=== PATIENT | male | born 1950 | race African-American/Black ===

== ENCOUNTER 2023-11-25 10:10 | Emergency (ER) | payer MEDICARE ==
[2023-11-25] MEDS ORDERED: HYDROcodone/Acetaminophen 5/325 mg Tablet ONE (10:57)
[2023-11-25 11:25] LABS: #Monocytes 0.7 thou/uL (0.11-0.59); #Neutrophils 7.5 thou/uL (1.40-6.50); %Basophils 0.1 % (0.0-1.0); %Lymphocytes 11.2 % (21.0-51.0); %Monocytes 7.9 % (0.0-10.0); %Neutrophils 80.4 % (42.0-75.0); Hematocrit 45.5 % (42.0-52.0); Hemoglobin 15.4 g/dL (14.0-18.0); Mean Corpuscular HGB CONC 33.8 g/dL (32.0-36.0); Mean Corpuscular Volume 88.5 fl (78.0-98.0); Mean Platelet Volume 10.2 fL (7.4-10.4); Platelet Count 210 10x3/uL (130-400); RBC Distribution Width 13.1 % (11.5-14.5); Red Blood Cell (RBC) Count 5.14 mill/uL (4.70-6.10); White Blood Cell (WBC) Count 9.3 10x3/uL (4.8-10.8)
[2023-11-25 11:48] LABS: ALT (SGPT) 25 U/L (8-55); AST (SGOT) 35 U/L (5-34); Albumin 4.2 g/dL (3.4-4.8); Alkaline Phosphatase 122 U/L (40-110); Anion Gap 20 mmol/L (10-20); BUN (Urea Nitrogen) 53 mg/dL (8.4-25.7); Bilirubin, Total 0.8 mg/dL (0.2-1.2); Calc. Creatinine Clearance 0 mL/min (70-130); Calcium 9.9 mg/dL (7.8-10.44); Carbon Dioxide 24 mmol/L (23-31); Chloride 99 mmol/L (98-107); Estimated GFR 16; Globulin 5.1 g/dL (2.4-3.5); Glucose 122 mg/dL (83-110); Potassium 4.1 mmol/L (3.5-5.1); Protein, Total 9.3 g/dL (5.8-8.1); Sodium 139 mmol/L (136-145)
[2023-11-25 12:34] LABS: Bacteria/HPF 4+ HPF (None Seen); Bilirubin Negative (Negative); Blood, Urine 2+ (Negative); CAUTI Indications for Culture Pelvic or flank pain; Clarity Turbid (Clear); Glucose, Urine (Dipstick) 100 mg/dL (Negative); Ketone, Urine Negative (Negative); Leukocyte 75 Leu/uL (Negative); Nitrite Negative (Negative); Protein, Urine (Dipstick) 30 mg/dL (Neg-Trace); RBC/HPF Greater than 50 HPF (0-3); Squamous Epithelial None Seen HPF (0-3); Urobilinogen Normal mg/dL (Less than 2)
[2023-11-25 12:37] LABS: Urine Culture Reflex Yes Yes
== END 2023-11-25 13:33 | disposition home or self-care (01) ==
LOC: ERS 10:10
DX: N40.1 Benign prostatic hyperplasia with lower urinary tract symptoms (principal); R33.8 Other retention of urine
CPT/HCPCS: 51702; 74176; 80053; 81001; 85025; 87086

== ENCOUNTER 2023-12-12 09:55 | Emergency (ER) | payer MEDICARE ==
[2023-12-12 11:24] LABS: Bilirubin Negative (Negative); Blood, Urine 3+ (Negative); CAUTI Indications for Culture Dysuria,urgency,freq; Clarity Turbid (Clear); Glucose, Urine (Dipstick) Normal (Negative); Ketone, Urine Negative (Negative); Leukocyte 250 Leu/uL (Negative); Nitrite Negative (Negative); Protein, Urine (Dipstick) 20 mg/dL (Neg-Trace); RBC/HPF Greater than 50 HPF (0-3); Specific Gravity, Urine 1.009 (1.002-1.036); Squamous Epithelial 0-3 HPF (0-3); Urobilinogen Normal mg/dL (Less than 2); pH, Urine 7.5 (5.0-9.0)
[2023-12-12 11:32] LABS: Bacteria/HPF Rare-Few HPF (None Seen)
[2023-12-12 11:33] LABS: Transitional Epithelial 0-3 HPF (None Seen); Urine Culture Reflex No No
== END 2023-12-12 12:06 | disposition home or self-care (01) ==
LOC: ERS 09:55
DX: R33.9 Retention of urine, unspecified (principal); F17.210 Nicotine dependence, cigarettes, uncomplicated
CPT/HCPCS: 51702; 51798; 81001; 87086; 99283

== ENCOUNTER 2024-06-03 09:17 | Inpatient (IN) | payer MEDICARE ==
[2024-06-03 10:47] LABS: Reflex for Review?? YES
[2024-06-03 10:53] LABS: ALT (SGPT) 14 U/L (8-55); AST (SGOT) 18 U/L (5-34); Albumin 2.5 g/dL (3.4-4.8); Alkaline Phosphatase 125 U/L (40-110); Anion Gap 20 mmol/L (10-20); BUN (Urea Nitrogen) 16 mg/dL (8.4-25.7); Bilirubin, Total 0.2 mg/dL (0.2-1.2); Calc. Creatinine Clearance 0 mL/min (70-130); Calcium 9.5 mg/dL (7.8-10.44); Carbon Dioxide 22 mmol/L (23-31); Chloride 99 mmol/L (98-107); Estimated GFR 69; Globulin 9.5 g/dL (2.4-3.5); Glucose 101 mg/dL (83-110); Hematocrit 16.5 % (42.0-52.0); Hemoglobin 5.1 g/dL (14.0-18.0); Mean Corpuscular HGB CONC 30.9 g/dL (32.0-36.0); Mean Corpuscular Hemoglobin 27.3 pg (27.0-31.0); Mean Corpuscular Volume 88.2 fL (78.0-98.0); Platelet Count 18 10x3/uL (130-400); Potassium 4.9 mmol/L (3.5-5.1); RBC Distribution Width 17.9 % (11.5-14.5); Red Blood Cell (RBC) Count 1.87 mill/uL (4.70-6.10); Sodium 136 mmol/L (136-145)
[2024-06-03 10:58] LABS: Troponin I Less than 0.010 ng/mL (< 0.028)
[2024-06-03] MEDS ORDERED: Senokot S 8.6-50 MG TAB PO PRN (11:42)
[2024-06-03] MEDS ORDERED: Acetaminophen 325 MG TAB PO PRN (11:42)
[2024-06-03] MEDS ORDERED: Ondansetron PF 4 MG/2 ML Vial IVP PRN (11:42)
[2024-06-03] MEDS ORDERED: Sodium Chloride 0.9% 1,000 ML IV SCH (11:45)
[2024-06-03 13:19] LABS: Bacteria/HPF None Seen HPF (None Seen); Bilirubin Negative (Negative); Blood, Urine Negative (Negative); CAUTI Indications for Culture Immunosuppressed; Clarity Clear (Clear); Glucose, Urine (Dipstick) Normal (Negative); Ketone, Urine Negative (Negative); Leukocyte 250 Leu/uL (Negative); Nitrite Negative (Negative); Protein, Urine (Dipstick) 10 mg/dL (Neg-Trace); Specific Gravity, Urine 1.041 (1.002-1.036); Squamous Epithelial 0-3 HPF (0-3); Urobilinogen Normal mg/dL (Less than 2); WBC/HPF Greater than 50 HPF (0-3)
[2024-06-03 13:20] LABS: Urine Culture Reflex Yes Yes
[2024-06-03 13:32] VITALS: BMI 21.7
[2024-06-03 13:37] LABS: Hematocrit 15.2 % (42.0-52.0); Hemoglobin 4.7 g/dL (14.0-18.0); Platelet Count 17 10x3/uL (130-400)
[2024-06-03 16:25] LABS: Hematocrit 16.5 % (42.0-52.0)
[2024-06-03 18:52] LABS: Hematocrit 18.1 % (42.0-52.0)
[2024-06-04 00:37] LABS: Hematocrit 20.4 % (42.0-52.0); Hemoglobin 6.6 g/dL (14.0-18.0); Platelet Count 16 10x3/uL (130-400)
[2024-06-04 07:13] LABS: Hematocrit 23.8 % (42.0-52.0); Hemoglobin 7.8 g/dL (14.0-18.0); Mean Corpuscular HGB CONC 32.8 g/dL (32.0-36.0); Mean Corpuscular Hemoglobin 27.8 pg (27.0-31.0); Mean Corpuscular Volume 84.7 fL (78.0-98.0); Platelet Count 17 10x3/uL (130-400); RBC Distribution Width 17.2 % (11.5-14.5); Red Blood Cell (RBC) Count 2.81 mill/uL (4.70-6.10)
[2024-06-04 07:26] LABS: INR-International Normal Ratio 1.2; Prothrombin Time 15.3 sec (12.0-14.7)
[2024-06-04 07:27] LABS: PTT 36.5 sec (22.9-36.1)
[2024-06-04 07:41] LABS: Anisocytosis MARKED = >30 cells HPF (0-5); Band 1 % (5-11); Hypochromia SLIGHT = 6-15 cells HPF (0-5); Lymphocytes 50 % (21-51); Macrocytosis MODERATE=16-30 cells HPF (0-5); Monocytes 18 % (0-10); Neutrophil 32 % (42-75); Platelet Adequacy Comment Significant Decrease; Polychromasia MARKED = >4 cells HPF (0-2); Target Cells SLIGHT = 2-5 cells HPF (0-1)
[2024-06-04 07:46] LABS: ALT (SGPT) 11 U/L (8-55); AST (SGOT) 17 U/L (5-34); Albumin 2.2 g/dL (3.4-4.8); Alkaline Phosphatase 116 U/L (40-110); Anion Gap 16 mmol/L (10-20); BUN (Urea Nitrogen) 14 mg/dL (8.4-25.7); Bilirubin, Direct 0.3 mg/dL (0.1-0.3); Bilirubin, Total 0.4 mg/dL (0.2-1.2); Calc. Creatinine Clearance 58 mL/min (70-130); Carbon Dioxide 25 mmol/L (23-31); Chloride 100 mmol/L (98-107); Estimated GFR 82; Globulin 8.9 g/dL (2.4-3.5); Glucose 89 mg/dL (83-110); Potassium 4.3 mmol/L (3.5-5.1); Protein, Total 11.1 g/dL (5.8-8.1); Sodium 137 mmol/L (136-145)
[2024-06-04] MEDS: Pantoprazole 40 MG VIAL IVP SCH (08:41)
[2024-06-04 09:05] LABS: Hematocrit 26.5 % (42.0-52.0)
[2024-06-04] MEDS ORDERED: PROPOFOL 200 MG/20 ML VIAL ONE (12:21)
[2024-06-04] MEDS ORDERED: Lidocaine 1% PF 5 ML VIAL ONE (12:21)
[2024-06-04] MEDS ORDERED: Promethazine HCl 25 MG/ML VIAL IM PRN (12:29)
[2024-06-04] MEDS ORDERED: Ondansetron HCl/PF 4 MG/2 ML Vial IVP PRN (12:29)
[2024-06-05 06:27] LABS: Anion Gap 16 mmol/L (10-20); BUN (Urea Nitrogen) 14 mg/dL (8.4-25.7); Calc. Creatinine Clearance 60 mL/min (70-130); Calcium 9.1 mg/dL (7.8-10.44); Carbon Dioxide 23 mmol/L (23-31); Chloride 102 mmol/L (98-107); Estimated GFR 85; Glucose 87 mg/dL (83-110); Iron 82 ug/dL (65-175); Potassium 4.2 mmol/L (3.5-5.1); Sodium 137 mmol/L (136-145); Transferrin, Serum 135 mg/dL (163-344)
[2024-06-05 06:47] LABS: Hematocrit 23.1 % (42.0-52.0); Hemoglobin 7.7 g/dL (14.0-18.0); Mean Corpuscular HGB CONC 33.3 g/dL (32.0-36.0); Mean Corpuscular Hemoglobin 27.6 pg (27.0-31.0); Mean Corpuscular Volume 82.8 fL (78.0-98.0); Mean Platelet Volume 10.6 fL (7.4-10.4); Platelet Count 40 10x3/uL (130-400); RBC Distribution Width 17.5 % (11.5-14.5); Red Blood Cell (RBC) Count 2.79 mill/uL (4.70-6.10)
[2024-06-05 07:40] LABS: Anisocytosis MODERATE=16-30 cells HPF (0-5); Band 2 % (5-11); Hypochromia SLIGHT = 6-15 cells HPF (0-5); Lymphocytes 53 % (21-51); Macrocytosis SLIGHT = 6-15 cells HPF (0-5); Monocytes 12 % (0-10); Neutrophil 33 % (42-75); Ovalocytes SLIGHT = 2-5 cells HPF (0-1); Platelet Adequacy Comment Platelets Decreased; Polychromasia MARKED = >4 cells HPF (0-2)
[2024-06-05] MEDS: Tamsulosin HCl 0.4 MG CAP PO SCH (09:08)
[2024-06-05] MEDS: LevoFLOXacin 750 mg/D5W 750 MG in Premix 1 BAG IVPB SCH (09:19)
[2024-06-05 14:02] LABS: Immunoglob - A (Total IgA) 89 mg/dL (101-645); Immunoglob - G (Total IgG) 714 mg/dL (540-1822)
[2024-06-05 14:46] LABS: Immunoglob - M (Total IgM) Greater than 6360 mg/dL (22-240)
[2024-06-06 08:11] LABS: Hematocrit 23.4 % (42.0-52.0); Hemoglobin 7.7 g/dL (14.0-18.0); Mean Corpuscular HGB CONC 32.9 g/dL (32.0-36.0); Mean Corpuscular Hemoglobin 27.8 pg (27.0-31.0); Mean Corpuscular Volume 84.5 fL (78.0-98.0); Mean Platelet Volume 11.3 fL (7.4-10.4); Platelet Count 35 10x3/uL (130-400); RBC Distribution Width 17.8 % (11.5-14.5); Red Blood Cell (RBC) Count 2.77 mill/uL (4.70-6.10)
[2024-06-06 08:31] LABS: ALT (SGPT) 12 U/L (8-55); AST (SGOT) 20 U/L (5-34); Albumin 2.1 g/dL (3.4-4.8); Alkaline Phosphatase 115 U/L (40-110); Anion Gap 17 mmol/L (10-20); BUN (Urea Nitrogen) 14 mg/dL (8.4-25.7); Bilirubin, Total 0.4 mg/dL (0.2-1.2); Calc. Creatinine Clearance 45 mL/min (70-130); Calcium 9.5 mg/dL (7.8-10.44); Carbon Dioxide 26 mmol/L (23-31); Chloride 97 mmol/L (98-107); Estimated GFR 60; Globulin 9.3 g/dL (2.4-3.5); Glucose 86 mg/dL (83-110); Potassium 4.5 mmol/L (3.5-5.1); Protein, Total 11.4 g/dL (5.8-8.1); Sodium 135 mmol/L (136-145)
[2024-06-06 08:38] LABS: Band 2 % (5-11); Lymphocytes 52 % (21-51); Monocytes 15 % (0-10); Neutrophil 28 % (42-75); Platelet Adequacy Comment Significant Decrease; RBC Morphology Within Normal Limits; Reactive Lymphocytes 3 % (0-10)
[2024-06-06 08:59] LABS: Ferritin 718.29 ng/mL (22-322)
[2024-06-06 16:13] LABS: Albumin-Ur 28.8 % (.); Alpha 1 - Ur 4.1 % (.); Alpha 2 - Ur 13.8 % (.); Beta-Ur 18.7 % (.); Gamma-Ur 34.7 % (.); M-Spike,% 23.1 % (Not Observed)
[2024-06-07 08:58] LABS: Hematocrit 24.6 % (42.0-52.0); Hemoglobin 7.9 g/dL (14.0-18.0); Mean Corpuscular HGB CONC 32.1 g/dL (32.0-36.0); Mean Corpuscular Hemoglobin 27.9 pg (27.0-31.0); Mean Corpuscular Volume 86.9 fL (78.0-98.0); Mean Platelet Volume 9.5 fL (7.4-10.4); Platelet Count 29 10x3/uL (130-400); Red Blood Cell (RBC) Count 2.83 mill/uL (4.70-6.10)
[2024-06-07 09:17] LABS: Kappa Lambda Light Chain Ratio 0.5 (0.26-1.65); Kappa Light Chains 18.7 mg/L (3.3-19.4); Lambda Light Chain 37.5 mg/L (5.7-26.3)
[2024-06-07 09:29] LABS: Band 2 % (5-11); Eosinophils 1 % (0-10); Lymphocytes 46 % (21-51); Monocytes 19 % (0-10); Neutrophil 27 % (42-75); Nucleated RBC (Manual Ct) 1 % (0); Platelet Adequacy Comment Significant Decrease; RBC Morphology Within Normal Limits; Reactive Lymphocytes 6 % (0-10)
[2024-06-07] MEDS ORDERED: Lidocaine 1% PF 5 ML VIAL ONE (13:52)
[2024-06-07 16:04] LABS: Reference Lab Name NEO
[2024-06-08 07:38] LABS: Hematocrit 23.3 % (42.0-52.0); Hemoglobin 7.4 g/dL (14.0-18.0); Mean Corpuscular HGB CONC 31.8 g/dL (32.0-36.0); Mean Corpuscular Hemoglobin 27.4 pg (27.0-31.0); Mean Corpuscular Volume 86.3 fL (78.0-98.0); Mean Platelet Volume 9.8 fL (7.4-10.4); Platelet Count 25 10x3/uL (130-400)
[2024-06-08 08:29] LABS: Band 2 % (5-11); Eosinophils 1 % (0-10); Hypochromia SLIGHT = 6-15 cells HPF (0-5); Lymphocytes 51 % (21-51); Monocytes 17 % (0-10); Neutrophil 29 % (42-75); Platelet Adequacy Comment Significant Decrease; Reactive Lymphocytes 1 % (0-10)
[2024-06-08] MEDS: LevoFLOXacin 750 mg/D5W 750 MG in Premix 1 BAG IVPB SCH (10:23)
[2024-06-08] MEDS: LevoFLOXacin 750 mg/D5W 150 ml Premix Bag ONE (10:35)
[2024-06-08] MEDS: Pantoprazole DR 40 MG TAB PO SCH (10:45)
[2024-06-09 05:49] LABS: Hematocrit 25.6 % (42.0-52.0); Hemoglobin 8.2 g/dL (14.0-18.0); Mean Corpuscular Hemoglobin 27.5 pg (27.0-31.0); Mean Corpuscular Volume 85.9 fL (78.0-98.0); Platelet Count 20 10x3/uL (130-400); RBC Distribution Width 17.9 % (11.5-14.5); Red Blood Cell (RBC) Count 2.98 mill/uL (4.70-6.10)
[2024-06-09 07:41] LABS: Band 6 % (5-11); Lymphocytes 39 % (21-51); Monocytes 29 % (0-10); Neutrophil 18 % (42-75); Platelet Adequacy Comment Significant Decrease; RBC Morphology Within Normal Limits; Reactive Lymphocytes 8 % (0-10)
[2024-06-09] MEDS: Pantoprazole DR 40 MG TAB PO SCH (08:52)
[2024-06-09 11:36] VITALS: BMI 21.7
[2024-06-09 20:47] VITALS: BP 125/69; TEMP 97.5
== END 2024-06-09 16:15 | disposition home or self-care (01) | DRG 841 ==
LOC: ERS 09:17 → T4-B 12:56 → OBSVTOIN 12:56
PROVIDERS: ADMIT Student in an Organized Health Care Education/Training Program; ATTEND Hospitalist
PROC: 0DB68ZX Excision of Stomach, Via Natural or Artificial Opening Endoscopic, Diagnostic (ICD-10-PCS; principal; 2024-06-04)
PROC: 07DR3ZX Extraction of Iliac Bone Marrow, Percutaneous Approach, Diagnostic (ICD-10-PCS; 2024-06-07)
DX: C90.00 Multiple myeloma not having achieved remission (principal); D61.818 Other pancytopenia; K22.10 Ulcer of esophagus without bleeding; C88.0 Waldenstrom macroglobulinemia; D64.9 Anemia, unspecified; D69.6 Thrombocytopenia, unspecified; Z79.899 Other long term (current) drug therapy; H40.9 Unspecified glaucoma; N40.0 Benign prostatic hyperplasia without lower urinary tract symptoms; K29.00 Acute gastritis without bleeding
CPT/HCPCS: 20225; 36415; 36430; 70450; 74177; 77012; 80048; 80053; 80076; 81001; 82232; 82607; 82728; 83540; 83615; 83880; 83883; 84155; 84156; 84165; 84166; 84466; 84484; 85025; 85046; 85060; 85097; 85610; 85730; 86850; 86870; 86900; 86901; 86921; 87077; 87086; 87186; 88184; 88185; 88305; 88311; 88313; 88342; 93005; 93010; 96374; G0378; J1956; J2470; J2704; P9016; P9035

== ENCOUNTER 2024-06-23 10:25 | Day surgery (SDC) | payer MEDICARE ==
[2024-06-23] MEDS ORDERED: diphenhydrAMINE 25 MG CAP ONE (11:20)
[2024-06-23] MEDS ORDERED: Acetaminophen 500 MG TAB ONE (11:20)
[2024-06-23] MEDS: diphenhydrAMINE 25 MG CAP PO SCH (11:21)
[2024-06-23] MEDS: Acetaminophen 500 MG TAB PO SCH (11:21)
[2024-06-23 14:56] VITALS: BP 133/67; TEMP 98.1
== END 2024-06-23 14:57 | disposition home or self-care (01) ==
LOC: ONC/OP 10:25
PROVIDERS: ATTEND Internal Medicine Hematology & Oncology
DX: D64.9 Anemia, unspecified (principal); D69.6 Thrombocytopenia, unspecified
CPT/HCPCS: 36430; 82784 ×3; 83883 ×2; 84155; 84165; 86850; 86900; 86901; 86920; P9016; P9035; 36415

== ENCOUNTER 2024-06-27 10:56 | Day surgery (SDC) | payer MEDICARE ==
[2024-06-27] MEDS ORDERED: diphenhydrAMINE 25 MG CAP PO SCH (11:30)
[2024-06-27] MEDS ORDERED: Acetaminophen 500 MG TAB ONE (12:00)
[2024-06-27] MEDS: Acetaminophen 500 MG TAB PO SCH (12:02)
[2024-06-27 15:09] VITALS: BP 124/86; TEMP 98.4
== END 2024-06-27 15:26 | disposition home or self-care (01) ==
LOC: ONC/OP 10:56
PROVIDERS: ATTEND Internal Medicine Hematology & Oncology
DX: D64.9 Anemia, unspecified (principal); D69.6 Thrombocytopenia, unspecified
CPT/HCPCS: 36430; 86850; 86900; 86901; 86920; P9016

== ENCOUNTER 2024-06-30 10:31 | Day surgery (SDC) | payer MEDICARE ==
[2024-06-30] MEDS ORDERED: diphenhydrAMINE 25 MG CAP ONE (11:39)
[2024-06-30] MEDS ORDERED: Acetaminophen 500 MG TAB ONE (11:39)
[2024-06-30] MEDS: diphenhydrAMINE 25 MG CAP PO SCH (11:40)
[2024-06-30] MEDS: Acetaminophen 500 MG TAB PO SCH (11:40)
[2024-06-30 12:30] VITALS: BP 148/67; TEMP 97.6
== END 2024-06-30 12:31 | disposition home or self-care (01) ==
LOC: ONC/OP 10:31
PROVIDERS: ATTEND Internal Medicine Hematology & Oncology
DX: D69.6 Thrombocytopenia, unspecified (principal)
CPT/HCPCS: 36430; 86850; 86900; 86901; P9035

== ENCOUNTER 2024-07-15 09:00 | Outpatient (CLI) | payer MEDICARE | END 2024-07-18 10:30 | disposition home or self-care (01) | LOC: PET 09:00 | PROVIDERS: ATTEND Internal Medicine | DX: C88.00 Waldenstrom macroglobulinemia not having achieved remission (principal) | CPT/HCPCS: 78816; A9552 ==

== ENCOUNTER 2025-06-16 15:52 | Inpatient (IN) | payer MEDICARE ==
[2025-06-16 16:36] LABS: Hematocrit 21.8 % (42.0-52.0); Hemoglobin 7.1 g/dL (14.0-18.0); Mean Corpuscular Hemoglobin 27.4 pg (27.0-31.0); Mean Corpuscular Volume 84.2 fL (78.0-98.0); Platelet Count 40 10x3/uL (130-400); Red Blood Cell (RBC) Count 2.59 mill/uL (4.70-6.10); White Blood Cell (WBC) Count 6.63 10x3/uL (4.8-10.8)
[2025-06-16 16:40] LABS: INR-International Normal Ratio 1.3; Prothrombin Time 16.5 sec (12.0-14.7)
[2025-06-16 16:41] LABS: PTT 40.8 sec (22.9-36.1)
[2025-06-16 16:47] LABS: ALT (SGPT) 17 U/L (Less than 45); AST (SGOT) 28 U/L (11-34); Albumin 2.0 g/dL (3.1-4.5); Alkaline Phosphatase 116 U/L (40-110); Anion Gap 18 mmol/L (10-20); BUN (Urea Nitrogen) 23 mg/dL (8.4-25.7); Bilirubin, Total 0.4 mg/dL (0.3-1.2); Calc. Creatinine Clearance 0 mL/min (70-130); Calcium 10.1 mg/dL (7.8-10.44); Carbon Dioxide 22 mmol/L (23-31); Chloride 85 mmol/L (98-107); Globulin 10.1 g/dL (2.4-3.5); Glucose 96 mg/dL (83-110); Potassium 4.2 mmol/L (3.5-5.1); Sodium 121 mmol/L (136-145)
[2025-06-16 17:02] LABS: Macrocytosis SLIGHT = 6-15 cells (100X) (0-5/hpf); Microcytosis SLIGHT = 6-15 cells (100X) (0-5/hpf); Plasma Cells 0 % (0-0)
[2025-06-16 17:20] LABS: Bacteria/HPF 1+ HPF (None Seen); CAUTI Indications for Culture Alt mental st,lethar; Glucose, Urine (Dipstick) Normal (Negative); Leukocyte 250 Leu/uL (Negative); Protein, Urine (Dipstick) 50 mg/dL (Neg-Trace); RBC/HPF Greater than 50 HPF (0-3); Specific Gravity, Urine 1.022 (1.002-1.036); WBC/HPF 21-50 HPF (0-3)
[2025-06-16 17:21] LABS: Urine Culture Reflex Yes Yes
[2025-06-16] MEDS ORDERED: cefTRIAXone (ROCEPHIN) 1 GM VIAL ONE (17:42)
[2025-06-16] MEDS ORDERED: Melatonin 3 MG TAB PO PRN (17:56)
[2025-06-16] MEDS ORDERED: Acetaminophen 325 MG TAB PO PRN (17:56)
[2025-06-16] MEDS ORDERED: Calcium Carbonate 500 MG ChewTAB PO PRN (17:56)
[2025-06-16] MEDS ORDERED: Senokot S 8.6-50 MG TAB PO PRN (17:56)
[2025-06-16] MEDS ORDERED: Bisacodyl 10 MG SUPP PR PRN (17:56)
[2025-06-16] MEDS ORDERED: Pharmacy to Dose: VANC IVPB PRN (18:01)
[2025-06-16 19:23] LABS: Osmolality, Urine 606 mOsm/kg (50-1200)
[2025-06-16 20:53] LABS: Anion Gap 19 mmol/L (10-20); BUN (Urea Nitrogen) 20 mg/dL (8.4-25.7); Calc. Creatinine Clearance 0 mL/min (70-130); Calcium 9.5 mg/dL (7.8-10.44); Carbon Dioxide 22 mmol/L (23-31); Chloride 88 mmol/L (98-107); Glucose 107 mg/dL (83-110); Potassium 4.2 mmol/L (3.5-5.1); Sodium 125 mmol/L (136-145)
[2025-06-16] MEDS: Vancomycin 1.5 GM / NS 500ML VIAL-2-BAG IVPB SCH (21:12)
[2025-06-16] MEDS: Vancomycin 1 GM in Premix 1 BAG IVPB SCH (22:50)
[2025-06-17 00:29] VITALS: BMI 21.9
[2025-06-17 04:30] LABS: Osmolality, Serum 289 mOsm/kg (280-301)
[2025-06-17 04:36] LABS: Vancomycin, Random 17.1 ug/mL (See Comment)
[2025-06-17 04:43] LABS: Anion Gap 16 mmol/L (10-20); BUN (Urea Nitrogen) 17 mg/dL (8.4-25.7); Calc. Creatinine Clearance 46 mL/min (70-130); Calcium 9.1 mg/dL (7.8-10.44); Carbon Dioxide 24 mmol/L (23-31); Chloride 98 mmol/L (98-107); Glucose 81 mg/dL (83-110); Potassium 4.3 mmol/L (3.5-5.1); Sodium 134 mmol/L (136-145)
[2025-06-17 05:19] LABS: Hematocrit 22.4 % (42.0-52.0); Hemoglobin 7.1 g/dL (14.0-18.0); Mean Corpuscular Hemoglobin 27.3 pg (27.0-31.0); Mean Corpuscular Volume 86.2 fL (78.0-98.0); Platelet Count 32 10x3/uL (130-400); Red Blood Cell (RBC) Count 2.60 mill/uL (4.70-6.10); White Blood Cell (WBC) Count 6.31 10x3/uL (4.8-10.8)
[2025-06-17 06:05] LABS: Platelet Adequacy Comment Platelets Decreased; RBC Morphology Within Normal Limits; Smudge Cells 36.4 %
[2025-06-17] MEDS: valACYclovir 500 MG TAB PO SCH (08:34)
[2025-06-17] MEDS: Pantoprazole 40 MG DR.TAB PO SCH (08:34)
[2025-06-17] MEDS: PNEUMOC 20-VAL CONJ-DIP CRM/PF 0.5 ML SYRINGE IM ONE (08:35)
[2025-06-17] MEDS: Vancomycin 1 GM in Premix 1 BAG IVPB SCH (08:37)
[2025-06-17 08:47] LABS: Anion Gap 18 mmol/L (10-20); BUN (Urea Nitrogen) 15 mg/dL (8.4-25.7); Calc. Creatinine Clearance 50 mL/min (70-130); Calcium 8.8 mg/dL (7.8-10.44); Carbon Dioxide 22 mmol/L (23-31); Chloride 98 mmol/L (98-107); Glucose 82 mg/dL (83-110); Potassium 4.0 mmol/L (3.5-5.1); Sodium 134 mmol/L (136-145)
[2025-06-17] MEDS ORDERED: Iopamidol 370 76% 100 ML VIAL ONE (14:21)
[2025-06-17 14:49] LABS: Hemoglobin 7.2 g/dL (14.0-18.0)
[2025-06-17 14:59] LABS: Anion Gap 18 mmol/L (10-20); BUN (Urea Nitrogen) 15 mg/dL (8.4-25.7); Calc. Creatinine Clearance 50 mL/min (70-130); Calcium 9.5 mg/dL (7.8-10.44); Carbon Dioxide 22 mmol/L (23-31); Chloride 99 mmol/L (98-107); Glucose 98 mg/dL (83-110); Potassium 4.3 mmol/L (3.5-5.1); Sodium 135 mmol/L (136-145)
[2025-06-17] MEDS ORDERED: ZANUBRUTINIB 80 MG PO SCH ×2 (21:00)
[2025-06-18 05:35] LABS: Hematocrit 22.7 % (42.0-52.0); Hemoglobin 7.2 g/dL (14.0-18.0); Mean Corpuscular Hemoglobin 27.5 pg (27.0-31.0); Mean Corpuscular Volume 86.6 fL (78.0-98.0); Platelet Count 31 10x3/uL (130-400); Red Blood Cell (RBC) Count 2.62 mill/uL (4.70-6.10); White Blood Cell (WBC) Count 5.68 10x3/uL (4.8-10.8)
[2025-06-18 05:38] LABS: Anion Gap 17 mmol/L (10-20); BUN (Urea Nitrogen) 10 mg/dL (8.4-25.7); Calc. Creatinine Clearance 54 mL/min (70-130); Calcium 9.3 mg/dL (7.8-10.44); Carbon Dioxide 24 mmol/L (23-31); Chloride 98 mmol/L (98-107); Glucose 78 mg/dL (83-110); Potassium 4.2 mmol/L (3.5-5.1); Sodium 135 mmol/L (136-145)
[2025-06-18 06:58] LABS: Anisocytosis SLIGHT = 6-15 cells HPF (0-5); Nucleated RBC (Manual Ct) 1 % (0); Plasma Cells 1 % (0-0); Platelet Adequacy Comment Significant Decrease; Polychromasia SLIGHT = 2-3 cells HPF (0-2); Smudge Cells 29.8 %; Stomatocytes SLIGHT = 2-5 cells HPF (0-1)
[2025-06-18] MEDS ORDERED: valACYclovir 500 MG TAB PO SCH (09:00)
[2025-06-18] MEDS ORDERED: Pantoprazole 40 MG DR.TAB PO SCH (09:00)
[2025-06-19 05:40] LABS: Hematocrit 27.0 % (42.0-52.0); Hemoglobin 8.5 g/dL (14.0-18.0); Mean Corpuscular Hemoglobin 27.2 pg (27.0-31.0); Mean Corpuscular Volume 86.5 fL (78.0-98.0); Platelet Count 29 10x3/uL (130-400); Red Blood Cell (RBC) Count 3.12 mill/uL (4.70-6.10); White Blood Cell (WBC) Count 6.03 10x3/uL (4.8-10.8)
[2025-06-19 05:44] LABS: Vancomycin, Random 10.4 ug/mL (See Comment)
[2025-06-19 06:06] LABS: Plasma Cells 1 % (0-0); Platelet Adequacy Comment Platelets Decreased; Polychromasia SLIGHT = 2-3 cells HPF (0-2); Smudge Cells 17.0 %
[2025-06-19] MEDS ORDERED: Lidocaine 1% PF 5 ML VIAL ONE (09:51)
[2025-06-19] MEDS ORDERED: Sodium Bicarbonate 2.5 MEQ/5 ML SDV ONE (09:51)
[2025-06-19] MEDS ORDERED: Lidocaine 1% w/Epinephrine 1:100K 20 ML VIAL ONE (09:51)
[2025-06-19] MEDS: Vancomycin HCl 750 MG in Sodium Chloride 0.9% 250 ML 250 ML IVPB SCH (21:08)
[2025-06-20 04:35] LABS: Hematocrit 26.0 % (42.0-52.0); Hemoglobin 8.2 g/dL (14.0-18.0); Mean Corpuscular Hemoglobin 27.7 pg (27.0-31.0); Mean Corpuscular Volume 87.8 fL (78.0-98.0); Platelet Count 30 10x3/uL (130-400); Red Blood Cell (RBC) Count 2.96 mill/uL (4.70-6.10); White Blood Cell (WBC) Count 6.15 10x3/uL (4.8-10.8)
[2025-06-20 05:14] LABS: Anisocytosis SLIGHT = 6-15 cells HPF (0-5); Plasma Cells 1 % (0-0); Platelet Adequacy Comment Significant Decrease; Smudge Cells 8.5 %
[2025-06-20] MEDS: Fosfomycin 3 GM/Packet PO SCH (11:11)
[2025-06-20 14:51] VITALS: BP 129/73; TEMP 98.5
[2025-06-27 14:14] LABS: A/G Ratio 0.5 (0.7-1.7); Albumin 3.9 g/dL (2.9-4.4); Alpha 1 0.3 g/dL (0.0-0.4); Alpha 2 1.2 g/dL (0.4-1.0); Beta 6.3 g/dL (0.7-1.3); Gamma 0.7 g/dL (0.4-1.8); Globulin, Total 8.5 g/dL (2.2-3.9); M-Spike 5.4 g/dL (Not Observed); Protein Electrophoresis Intrp Note: (.)
== END 2025-06-20 13:50 | disposition home or self-care (01) | DRG 840 ==
LOC: ERS 15:52 → MSONC 17:47
PROVIDERS: ADMIT Internal Medicine; ATTEND Hospitalist
PROC: 079T3ZX Drainage of Bone Marrow, Percutaneous Approach, Diagnostic (ICD-10-PCS; principal; 2025-06-16)
PROC: 07DR3ZX Extraction of Iliac Bone Marrow, Percutaneous Approach, Diagnostic (ICD-10-PCS; principal; 2025-06-16)
PROC: 30233N1 Transfusion of Nonautologous Red Blood Cells into Peripheral Vein, Percutaneous Approach (ICD-10-PCS; 2025-06-16)
PROC: 3E03329 Introduction of Other Anti-infective into Peripheral Vein, Percutaneous Approach (ICD-10-PCS; 2025-06-16)
PROC: 3E0234Z Introduction of Serum, Toxoid and Vaccine into Muscle, Percutaneous Approach (ICD-10-PCS; 2025-06-17)
PROC: XW0DXF5 Introduction of Other New Technology Therapeutic Substance into Mouth and Pharynx, External Approach, New Technology Group 5 (ICD-10-PCS; 2025-06-20)
DX: C88.00 Waldenstrom macroglobulinemia not having achieved remission (principal); A41.9 Sepsis, unspecified organism; R65.20 Severe sepsis without septic shock; E87.1 Hypo-osmolality and hyponatremia; N39.0 Urinary tract infection, site not specified; N17.9 Acute kidney failure, unspecified; F10.90 Alcohol use, unspecified, uncomplicated; F17.210 Nicotine dependence, cigarettes, uncomplicated; F17.220 Nicotine dependence, chewing tobacco, uncomplicated; D69.6 Thrombocytopenia, unspecified; N40.0 Benign prostatic hyperplasia without lower urinary tract symptoms; K21.9 Gastro-esophageal reflux disease without esophagitis; W20.8XXA Other cause of strike by thrown, projected or falling object, initial encounter; D63.0 Anemia in neoplastic disease; Z23 Encounter for immunization; Z79.899 Other long term (current) drug therapy
CPT/HCPCS: 36415; 36430; 38222; 70450; 71275; 77002; 77012; 80048; 80053; 80202; 81001; 83605; 83930; 83935; 84155; 84165; 84300; 84443; 85025; 85097; 85610; 85730; 86850; 86900; 86901; 86921; 86922; 87040; 87086; 88184; 88185; 88237; 88264; 88280; 88305; 88311; 88341; 88342; 88365; 93005; 96361; 96365; C1830; J0692; J0696; J3373; J7030; J7050; P9016; Q9967

== ENCOUNTER 2025-07-10 15:47 | Inpatient (IN) | payer MEDICARE ==
[2025-07-10 17:34] LABS: #Basophils Less than 0.03 10x3/uL (0.0-0.2); #Eosinophils Less than 0.03 10x3/uL (0.0-0.7); #Monocytes 1.08 10x3/uL (0.11-0.59); #Neutrophils 1.46 10x3/uL (1.40-6.50); %Basophils 0.4 % (0.0-1.0); %Eosinophils 0.4 % (0.0-10.0); %Lymphocytes 50.9 % (21.0-51.0); %Monocytes 20.0 % (0.0-10.0); %Neutrophils 27.0 % (42.0-75.0); Hematocrit 22.7 % (42.0-52.0); Hemoglobin 7.3 g/dL (14.0-18.0); Mean Corpuscular Hemoglobin 27.8 pg (27.0-31.0); Mean Corpuscular Volume 86.3 fL (78.0-98.0); Platelet Count 17 10x3/uL (130-400); Red Blood Cell (RBC) Count 2.63 mill/uL (4.70-6.10); White Blood Cell (WBC) Count 5.40 10x3/uL (4.8-10.8)
[2025-07-10 18:19] LABS: ALT (SGPT) 17 U/L (Less than 45); AST (SGOT) 30 U/L (11-34); Albumin 1.7 g/dL (3.1-4.5); Alkaline Phosphatase 128 U/L (40-110); Anion Gap 15 mmol/L (10-20); BUN (Urea Nitrogen) 20 mg/dL (8.4-25.7); Bilirubin, Total 0.4 mg/dL (0.3-1.2); Calc. Creatinine Clearance 0 mL/min (70-130); Calcium 9.9 mg/dL (7.8-10.44); Carbon Dioxide 24 mmol/L (23-31); Chloride 80 mmol/L (98-107); Globulin 10.3 g/dL (2.4-3.5); Glucose 97 mg/dL (83-110); Potassium 4.2 mmol/L (3.5-5.1); Sodium 115 mmol/L (136-145)
[2025-07-10 18:33] LABS: Anisocytosis SLIGHT = 6-15 cells HPF (0-5); Macrocytosis SLIGHT = 6-15 cells HPF (0-5); Microcytosis SLIGHT = 6-15 cells HPF (0-5); Platelet Adequacy Comment Platelets Decreased; Smudge Cells 1.9 %
[2025-07-10] MEDS ORDERED: Sodium Chloride 256 MEQ in Sterile Water 936 ML IV SCH (19:00)
[2025-07-10] MEDS ORDERED: Ondansetron PF 4 MG/2 ML Vial IVP PRN (21:15)
[2025-07-10] MEDS ORDERED: Calcium Carbonate 500 MG ChewTAB PO PRN (21:15)
[2025-07-10] MEDS ORDERED: Senokot S 8.6-50 MG TAB PO PRN (21:15)
[2025-07-10] MEDS ORDERED: Acetaminophen 325 MG TAB PO PRN (21:15)
[2025-07-10] MEDS ORDERED: Guaifenesin DM 100-10/5 ML UDCUP PO PRN (21:15)
[2025-07-11] MEDS ORDERED: Dexamethasone 10 MG/ML VIAL ONE (00:15)
[2025-07-11] MEDS: Dexamethasone 10 MG/ML VIAL SLOW IVP SCH (00:24)
[2025-07-11 00:46] LABS: Bacteria/HPF None Seen HPF (None Seen); Glucose, Urine (Dipstick) Normal (Negative); Leukocyte 75 Leu/uL (Negative); Protein, Urine (Dipstick) 10 mg/dL (Neg-Trace); RBC/HPF 0-3 HPF (0-3); Specific Gravity, Urine 1.020 (1.002-1.036)
[2025-07-11 00:56] LABS: Sodium, Urine 81.0 mmol/L (Not Available)
[2025-07-11 00:58] LABS: Anion Gap 20 mmol/L (10-20); BUN (Urea Nitrogen) 21 mg/dL (8.4-25.7); Calc. Creatinine Clearance 0 mL/min (70-130); Calcium 9.8 mg/dL (7.8-10.44); Carbon Dioxide 23 mmol/L (23-31); Chloride 96 mmol/L (98-107); Glucose 78 mg/dL (83-110); Potassium 4.5 mmol/L (3.5-5.1); Sodium 134 mmol/L (136-145)
[2025-07-11 01:06] LABS: Osmolality, Urine 627 mOsm/kg (50-1200)
[2025-07-11 02:24] VITALS: BMI 21.1
[2025-07-11 07:07] LABS: Anion Gap 16 mmol/L (10-20); BUN (Urea Nitrogen) 21 mg/dL (8.4-25.7); Calc. Creatinine Clearance 51 mL/min (70-130); Calcium 9.4 mg/dL (7.8-10.44); Carbon Dioxide 23 mmol/L (23-31); Chloride 95 mmol/L (98-107); Glucose 90 mg/dL (83-110); Potassium 5.4 mmol/L (3.5-5.1); Sodium 129 mmol/L (136-145)
[2025-07-11 07:21] LABS: Hematocrit 22.6 % (42.0-52.0); Hemoglobin 7.3 g/dL (14.0-18.0); Mean Corpuscular Hemoglobin 28.2 pg (27.0-31.0); Mean Corpuscular Volume 87.3 fL (78.0-98.0); Platelet Count 16 10x3/uL (130-400); Red Blood Cell (RBC) Count 2.59 mill/uL (4.70-6.10); White Blood Cell (WBC) Count 6.83 10x3/uL (4.8-10.8)
[2025-07-11] MEDS ORDERED: Folic Acid 1 MG TAB ONE (08:55)
[2025-07-11] MEDS ORDERED: valACYclovir 500 MG TAB ONE (08:56)
[2025-07-11] MEDS ORDERED: Pantoprazole 40 MG DR.TAB ONE (08:56)
[2025-07-11] MEDS: FLU (Fluad Triv) 25-26 (65UP)PF 45 MCG/0.5 ML Syringe IM ONE (09:08)
[2025-07-11] MEDS: PNEUMOC 20-VAL CONJ-DIP CRM/PF 0.5 ML SYRINGE IM ONE (09:08)
[2025-07-11 09:28] LABS: Anisocytosis SLIGHT = 6-15 cells HPF (0-5); Macrocytosis SLIGHT = 6-15 cells HPF (0-5); Platelet Adequacy Comment Significant Decrease; Polychromasia MARKED = >4 cells HPF (0-2); Target Cells SLIGHT = 2-5 cells HPF (0-1)
[2025-07-11] MEDS: Cholecalciferol (Vitamin D3) 400 UNITS TAB PO SCH (09:41)
[2025-07-11] MEDS: Folic Acid 1 MG TAB PO SCH (09:41)
[2025-07-11] MEDS: Pantoprazole 40 MG DR.TAB PO SCH (09:41)
[2025-07-11] MEDS: valACYclovir 500 MG TAB PO SCH (09:41)
[2025-07-11] MEDS: Thiamine 100 MG TAB PO SCH (09:41)
[2025-07-11 13:53] LABS: Anion Gap 20 mmol/L (10-20); BUN (Urea Nitrogen) 19 mg/dL (8.4-25.7); Calc. Creatinine Clearance 56 mL/min (70-130); Calcium 9.8 mg/dL (7.8-10.44); Carbon Dioxide 23 mmol/L (23-31); Chloride 93 mmol/L (98-107); Glucose 80 mg/dL (83-110); Potassium 4.7 mmol/L (3.5-5.1); Sodium 131 mmol/L (136-145)
[2025-07-11 15:45] LABS: Nucleated RBC (Manual Ct) 2 % (0); Smudge Cells 21.2 %
[2025-07-11 20:00] VITALS: BP 121/68; TEMP 98.1
== END 2025-07-11 22:11 | disposition short-term general hospital (02) | DRG 70 ==
LOC: ERS 15:47 → ERHOLD 21:15 → MSONC 07-11 12:21
PROVIDERS: ADMIT Student in an Organized Health Care Education/Training Program; ATTEND Student in an Organized Health Care Education/Training Program
PROC: 30233N1 Transfusion of Nonautologous Red Blood Cells into Peripheral Vein, Percutaneous Approach (ICD-10-PCS; principal; 2025-07-10)
PROC: 30233R1 Transfusion of Nonautologous Platelets into Peripheral Vein, Percutaneous Approach (ICD-10-PCS; 2025-07-10)
PROC: 30233N1 Transfusion of Nonautologous Red Blood Cells into Peripheral Vein, Percutaneous Approach (ICD-10-PCS; 2025-07-10)
DX: G93.89 Other specified disorders of brain (principal); I61.8 Other nontraumatic intracerebral hemorrhage; C83.30 Diffuse large B-cell lymphoma, unspecified site; D61.818 Other pancytopenia; E87.1 Hypo-osmolality and hyponatremia; N40.0 Benign prostatic hyperplasia without lower urinary tract symptoms; C88.00 Waldenstrom macroglobulinemia not having achieved remission
CPT/HCPCS: 36415; 36430; 70450; 70553; 71045; 76376; 80048; 80053; 81001; 82533; 82570; 83930; 83935; 84300; 84443; 84550; 85025; 86141; 86850; 86870; 86880; 86900; 86901; 86921; A4217; J1100; J7070; P9016; P9035